=== PATIENT | male | born 1995 | race Caucasian/White ===

== ENCOUNTER 2018-08-05 17:52 | Emergency (ER) | payer SELFPAY ==
--- NOTE | 2018-08-05 18:02 | ED.GENADULT ---
HPI - General Adult <Shantel Diaz PA-C - Last Filed: 08/05/18 21:46> General Chief complaint: Toxicology Problem Stated complaint: scared of overdocing Time Seen by Provider: 08/05/18 17:55 Source: patient Mode of arrival: ambulatory Limitations: no limitations History of Present Illness HPI narrative: This 23-year-old male comes to ED secondary to concern for unknown drug ingestion/intoxication. He states that he does take Percocet sometimes, and an acquaintance offered him 1 earlier that he took. He states friends were later laughing saying it was Fentanyl, and 1/2 hour to 45 minutes after taking it he became nauseated, felt dizzy and sweaty. He states he vomited 4 or 5 times, tried to drink some milk but could not keep that down. He states that he did smoke pot today, denies any other drug ingestion. He denies any alcohol today, did have some last night. He states that his ?head feels nauseated?. He denies chest pain or dyspnea. He states that he did eat earlier today. He states that he felt like it was more difficult to walk earlier due to nausea. He denies vision change. He denies chest pain, dyspnea or abdominal pain. He denies extremity pain or other new complaints on systems review. He states that crush is it, it crutches easily where as this was a different texture ?like little rocks?. Related Data Previous Rx's Medication Instructions Recorded clindamycin HCl [Cleocin HCl] 300 mg PO TID #30 cap 01/28/17 Allergies Allergy/AdvReac Type Severity Reaction Status Date / Time amoxicillin Allergy Unknown Verified 08/05/18 18:05 cefuroxime Allergy Unknown Verified 08/05/18 18:05 Sulfa (Sulfonamide Allergy Unknown Verified 08/05/18 18:05 Antibiotics) Review of Systems <Shantel Diaz PA-C - Last Filed: 08/05/18 21:46> Review of Systems ROS Unobtainable: All systems reviewed & are unremarkable except as noted in HPI and below PFSH <Shantel Diaz PA-C - Last Filed: 08/05/18 21:46> Medical History (Updated 08/05/18 @ 19:51 by Shantel Diaz PA-C) History of attention deficit disorder (Chronic) History of bipolar disorder (Chronic) Surgical History Status post tonsillectomy (Resolved) Social History Smoking Status: Never smoker Social History Smoking Status: Never smoker Exam <Shantel Diaz PA-C - Last Filed: 08/05/18 21:46> Narrative Exam Narrative: GENERAL APPEARANCE: Patient appears somewhat uncomfortable but in NAD HEENT: PERRL, EOMI, normal oropharynx NECK: Supple LUNGS: Clear to auscultation bilaterally. HEART: Rate and rhythm regular without murmur, normal S1 and S2, no S3 or S4. ABDOMEN: Soft, NT, ND, + BS x 4 quadrants NEUROLOGIC: Alert and oriented, normal speech and coordination DERMATOLOGIC: No exanthem, minimal diaphoresis Initial Vital Signs Initial Vital Signs: Vital Signs Pulse Rate 59 L 08/05/18 18:05 Respiratory Rate 20 08/05/18 18:05 Blood Pressure 140/86 08/05/18 18:05 Pulse Oximetry 100 08/05/18 18:05 <Nigel Swain DO - Last Filed: 08/06/18 01:21> Initial Vital Signs Initial Vital Signs: Vital Signs Pulse Rate 59 L 08/05/18 18:05 Respiratory Rate 20 08/05/18 18:05 Blood Pressure 140/86 08/05/18 18:05 Pulse Oximetry 100 08/05/18 18:05 Course <Shantel Diaz PA-C - Last Filed: 08/05/18 21:46> Additional Information: Patient is feeling well at the time of discharge, tolerating oral fluids well and stating that he is hungry, plans to go to [facility]. Reviewed findings of urine drug screen with him, no opiate found but positive for methamphetamine which is likely what he was given. Orders Ordered: ED Orders 08/05/18 18:08 EKG-12 Lead Stat 08/05/18 18:15 Acetaminophen Stat Complete Blood Count AUTO DIFF Stat Comprehensive Metabolic Panel Stat Magnesium Stat Salicylate Stat 08/05/18 19:20 Urine Culture Stat Urine Drug Screen, Rapid Stat Urine Microscopic Stat Discontinued Medications Sodium Chloride (Normal Saline 0.9%) 1,000 mls @ 1,000 mls/hr IV BOLUS ONE Stop: 08/05/18 19:18 Last Infusion: 08/05/18 19:40 Dose: 0 mls/hr Admin: 08/05/18 18:22 Dose: 1,000 mls/hr Ondansetron HCl (Zofran) 4 mg IV NOW ONE Stop: 08/05/18 18:12 Last Admin: 08/05/18 18:22 Dose: 4 mg Vital Signs - 8 hr 08/05/18 18:05 08/05/18 19:32 Pulse Rate 59 L 75 Respiratory Rate 20 18 Blood Pressure 140/86 Blood Pressure [Right Arm] 128/77 Pulse Oximetry 100 98 <Nigel Swain DO - Last Filed: 08/06/18 01:21> Orders Ordered: ED Orders 08/05/18 18:08 EKG-12 Lead Stat 08/05/18 18:15 Acetaminophen Stat Complete Blood Count AUTO DIFF Stat Comprehensive Metabolic Panel Stat Magnesium Stat Salicylate Stat 08/05/18 19:20 Urine Culture Stat Urine Drug Screen, Rapid Stat Urine Microscopic Stat Discontinued Medications Sodium Chloride (Normal Saline 0.9%) 1,000 mls @ 1,000 mls/hr IV BOLUS ONE Stop: 08/05/18 19:18 Last Infusion: 08/05/18 19:40 Dose: 0 mls/hr Admin: 08/05/18 18:22 Dose: 1,000 mls/hr Ondansetron HCl (Zofran) 4 mg IV NOW ONE Stop: 08/05/18 18:12 Last Admin: 08/05/18 18:22 Dose: 4 mg Vital Signs - 8 hr 08/05/18 18:05 08/05/18 19:32 Pulse Rate 59 L 75 Respiratory Rate 20 18 Blood Pressure 140/86 Blood Pressure [Right Arm] 128/77 Pulse Oximetry 100 98 Medical Decision Making <Shantel Diaz PA-C - Last Filed: 08/05/18 21:46> Lab Data Lab results reviewed: Yes I reviewed the patient's lab results. Result diagrams: 08/05/18 18:15 08/05/18 18:15 Lab Results 05/26/19 05/26/19 05/26/19 Range/Units 18:15 18:15 18:15 WBC 12.1 H (4.5-11.0) X10^3/uL RBC 5.27 (4.5-5.9) X10^6/uL Hgb 16.3 (13.5-17.5) g/dL Hct 47.7 (41-53) % MCV 90.4 (80-100) fL MCH 30.9 (26-34) PG MCHC 34.1 (30-36) % RDW 12.6 (11.6-14.8) % Plt Count 306 (150-400) X10^3/uL Neut % (Auto) 57.5 (50-75) % Lymph % (Auto) 25.3 (25-40) % [place] % (Auto) 10.5 (3-14) % Eos % (Auto) 5.4 H (2-4) % Baso % (Auto) 1.3 (0-2) % Neut # (Auto) 6900 (8188-0074) /uL Lymph # (Auto) 3100 (1607-7115) /uL [place] # (Auto) 1300 H (0-900) /uL Eos # (Auto) 700 H (0-450) /uL Baso # (Auto) 200 H (0-100) /uL Sodium 141 (137-145) mmol/L Potassium 3.5 (3.4-5.1) mmol/L Chloride 99 (98-107) mmol/L Carbon Dioxide 29 (22-32) mmol/L BUN 14 (9-20) mg/dL Creatinine 0.80 (0.66-1.25) mg/dL Estimated GFR > 60.0 (>60) mL/min BUN/Creatinine Ratio 17.5 (6-22) Glucose 125 H (70-100) mg/dL Calcium 9.7 (8.4-10.2) mg/dL Magnesium 2.0 (1.6-2.3) mg/dL Total Bilirubin 0.9 (0.2-1.3) mg/dL AST 24 (17-59) IU/L ALT 20 L (21-72) IU/L Alkaline Phosphatase 70 (38-126) U/L Total Protein 7.9 (6.3-8.2) g/dL Albumin 5.0 (3.5-5.0) g/dL Globulin 2.9 (1.7-4.1) g/dL Albumin/Globulin Ratio 1.7 (1.0-2.8) Urine RBC (0-5/HPF) Urine WBC (0-5/HPF) Ur Squamous Epith Cells (0-5/HPF) Amorphous Sediment Urine Bacteria (None) Urine Mucus (Negative) Ur Culture Indicated? Salicylates (<20) mg/dL Urine Opiates Screen (Negative) Ur Oxycodone Screen (Negative) Urine Methadone Screen (Negative) Acetaminophen < 10 L (10-30) ug/mL Ur Barbiturates Screen (Negative) U Tricyclic Antidepress (Negative) Ur Phencyclidine Scrn (Negative) Ur Amphetamines Screen (Negative) U Methamphetamines Scrn (Negative) Ur MDMA Scrn (Ecstasy) (Negative) U Benzodiazepines Scrn (Negative) Urine Cocaine Screen (Negative) U Marijuana (THC) Screen (Negative) 08/05/18 08/05/18 08/05/18 Range/Units 18:15 19:20 19:20 WBC (4.5-11.0) X10^3/uL RBC (4.5-5.9) X10^6/uL Hgb (13.5-17.5) g/dL Hct (41-53) % MCV (80-100) fL MCH (26-34) PG MCHC (30-36) % RDW (11.6-14.8) % Plt Count (150-400) X10^3/uL Neut % (Auto) (50-75) % Lymph % (Auto) (25-40) % [place] % (Auto) (3-14) % Eos % (Auto) (2-4) % Baso % (Auto) (0-2) % Neut # (Auto) (6799-3071) /uL Lymph # (Auto) (9083-0440) /uL [place] # (Auto) (0-900) /uL Eos # (Auto) (0-450) /uL Baso # (Auto) (0-100) /uL Sodium (137-145) mmol/L Potassium (3.4-5.1) mmol/L Chloride (98-107) mmol/L Carbon Dioxide (22-32) mmol/L BUN (9-20) mg/dL Creatinine (0.66-1.25) mg/dL Estimated GFR (>60) mL/min BUN/Creatinine Ratio (6-22) Glucose (70-100) mg/dL Calcium (8.4-10.2) mg/dL Magnesium (1.6-2.3) mg/dL Total Bilirubin (0.2-1.3) mg/dL AST (17-59) IU/L ALT (21-72) IU/L Alkaline Phosphatase (38-126) U/L Total Protein (6.3-8.2) g/dL Albumin (3.5-5.0) g/dL Globulin (1.7-4.1) g/dL Albumin/Globulin Ratio (1.0-2.8) Urine RBC None seen (0-5/HPF) Urine WBC 10-30/hpf H (0-5/HPF) Ur Squamous Epith Cells 0-1 /hpf (0-5/HPF) Amorphous Sediment 1+ Urine Bacteria Few (2-10) H (None) Urine Mucus 2+ H (Negative) Ur Culture Indicated? Specimen cultured Salicylates < 1.0 (<20) mg/dL Urine Opiates Screen Negative (Negative) Ur Oxycodone Screen Negative (Negative) Urine Methadone Screen Negative (Negative) Acetaminophen (10-30) ug/mL Ur Barbiturates Screen Negative (Negative) U Tricyclic Antidepress Negative (Negative) Ur Phencyclidine Scrn Negative (Negative) Ur Amphetamines Screen Positive H (Negative) U Methamphetamines Scrn Positive H (Negative) Ur MDMA Scrn (Ecstasy) Negative (Negative) U Benzodiazepines Scrn Negative (Negative) Urine Cocaine Screen Negative (Negative) U Marijuana (THC) Screen Positive H (Negative) Urine Dip Bedside Urine Glucose Negative Bedside Urine Bilirubin - Negative Bedside Urine Ketone ++ 40 Urine Specific [place] 1.025 Bedside Urine Occult Blood - Negative Bedside Urine pH 6.0 Bedside Urine Protein + 30 Bedside Urine Urobilinogen +/- 1mg Bedside Urine Nitrite - Negative Bedside Urine Leukocytes +/- 15 Esterase Point of care testing: Urine Dip Bedside Urine Glucose Negative Bedside Urine Bilirubin - Negative Bedside Urine Ketone ++ 40 Urine Specific [place] 1.025 Bedside Urine Occult Blood - Negative Bedside Urine pH 6.0 Bedside Urine Protein + 30 Bedside Urine Urobilinogen +/- 1mg Bedside Urine Nitrite - Negative Bedside Urine Leukocytes +/- 15 Esterase ECG Data Attestation: I personally reviewed and interpreted this ECG as follows: (Normal sinus rhythm, rate 61, normal axis, no ectopy) Prior ECG tracings: not available for review <Nigel Swain DO - Last Filed: 08/06/18 01:21> Lab Data Lab Results 08/05/18 08/05/18 08/05/18 Range/Units 18:15 18:15 18:15 WBC 12.1 H (4.5-11.0) X10^3/uL RBC 5.27 (4.5-5.9) X10^6/uL Hgb 16.3 (13.5-17.5) g/dL Hct 47.7 (41-53) % MCV 90.4 (80-100) fL MCH 30.9 (26-34) PG MCHC 34.1 (30-36) % RDW 12.6 (11.6-14.8) % Plt Count 306 (150-400) X10^3/uL Neut % (Auto) 57.5 (50-75) % Lymph % (Auto) 25.3 (25-40) % [place] % (Auto) 10.5 (3-14) % Eos % (Auto) 5.4 H (2-4) % Baso % (Auto) 1.3 (0-2) % Neut # (Auto) 6900 (3238-2749) /uL Lymph # (Auto) 3100 (4253-5047) /uL [place] # (Auto) 1300 H (0-900) /uL Eos # (Auto) 700 H (0-450) /uL Baso # (Auto) 200 H (0-100) /uL Sodium 141 (137-145) mmol/L Potassium 3.5 (3.4-5.1) mmol/L Chloride 99 (98-107) mmol/L Carbon Dioxide 29 (22-32) mmol/L BUN 14 (9-20) mg/dL Creatinine 0.80 (0.66-1.25) mg/dL Estimated GFR > 60.0 (>60) mL/min BUN/Creatinine Ratio 17.5 (6-22) Glucose 125 H (70-100) mg/dL Calcium 9.7 (8.4-10.2) mg/dL Magnesium 2.0 (1.6-2.3) mg/dL Total Bilirubin 0.9 (0.2-1.3) mg/dL AST 24 (17-59) IU/L ALT 20 L (21-72) IU/L Alkaline Phosphatase 70 (38-126) U/L Total Protein 7.9 (6.3-8.2) g/dL Albumin 5.0 (3.5-5.0) g/dL Globulin 2.9 (1.7-4.1) g/dL Albumin/Globulin Ratio 1.7 (1.0-2.8) Urine RBC (0-5/HPF) Urine WBC (0-5/HPF) Ur Squamous Epith Cells (0-5/HPF) Amorphous Sediment Urine Bacteria (None) Urine Mucus (Negative) Ur Culture Indicated? Salicylates (<20) mg/dL Urine Opiates Screen (Negative) Ur Oxycodone Screen (Negative) Urine Methadone Screen (Negative) Acetaminophen < 10 L (10-30) ug/mL Ur Barbiturates Screen (Negative) U Tricyclic Antidepress (Negative) Ur Phencyclidine Scrn (Negative) Ur Amphetamines Screen (Negative) U Methamphetamines Scrn (Negative) Ur MDMA Scrn (Ecstasy) (Negative) U Benzodiazepines Scrn (Negative) Urine Cocaine Screen (Negative) U Marijuana (THC) Screen (Negative) 08/05/18 08/05/18 08/05/18 Range/Units 18:15 19:20 19:20 WBC (4.5-11.0) X10^3/uL RBC (4.5-5.9) X10^6/uL Hgb (13.5-17.5) g/dL Hct (41-53) % MCV (80-100) fL MCH (26-34) PG MCHC (30-36) % RDW (11.6-14.8) % Plt Count (150-400) X10^3/uL Neut % (Auto) (50-75) % Lymph % (Auto) (25-40) % [place] % (Auto) (3-14) % Eos % (Auto) (2-4) % Baso % (Auto) (0-2) % Neut # (Auto) (6469-8201) /uL Lymph # (Auto) (3598-3394) /uL [place] # (Auto) (0-900) /uL Eos # (Auto) (0-450) /uL Baso # (Auto) (0-100) /uL Sodium (137-145) mmol/L Potassium (3.4-5.1) mmol/L Chloride (98-107) mmol/L Carbon Dioxide (22-32) mmol/L BUN (9-20) mg/dL Creatinine (0.66-1.25) mg/dL Estimated GFR (>60) mL/min BUN/Creatinine Ratio (6-22) Glucose (70-100) mg/dL Calcium (8.4-10.2) mg/dL Magnesium (1.6-2.3) mg/dL Total Bilirubin (0.2-1.3) mg/dL AST (17-59) IU/L ALT (21-72) IU/L Alkaline Phosphatase (38-126) U/L Total Protein (6.3-8.2) g/dL Albumin (3.5-5.0) g/dL Globulin (1.7-4.1) g/dL Albumin/Globulin Ratio (1.0-2.8) Urine RBC None seen (0-5/HPF) Urine WBC 10-30/hpf H (0-5/HPF) Ur Squamous Epith Cells 0-1 /hpf (0-5/HPF) Amorphous Sediment 1+ Urine Bacteria Few (2-10) H (None) Urine Mucus 2+ H (Negative) Ur Culture Indicated? Specimen cultured Salicylates < 1.0 (<20) mg/dL Urine Opiates Screen Negative (Negative) Ur Oxycodone Screen Negative (Negative) Urine Methadone Screen Negative (Negative) Acetaminophen (10-30) ug/mL Ur Barbiturates Screen Negative (Negative) U Tricyclic Antidepress Negative (Negative) Ur Phencyclidine Scrn Negative (Negative) Ur Amphetamines Screen Positive H (Negative) U Methamphetamines Scrn Positive H (Negative) Ur MDMA Scrn (Ecstasy) Negative (Negative) U Benzodiazepines Scrn Negative (Negative) Urine Cocaine Screen Negative (Negative) U Marijuana (THC) Screen Positive H (Negative) Urine Dip Bedside Urine Glucose Negative Bedside Urine Bilirubin - Negative Bedside Urine Ketone ++ 40 Urine Specific [place] 1.025 Bedside Urine Occult Blood - Negative Bedside Urine pH 6.0 Bedside Urine Protein + 30 Bedside Urine Urobilinogen +/- 1mg Bedside Urine Nitrite - Negative Bedside Urine Leukocytes +/- 15 Esterase Point of care testing: Urine Dip Bedside Urine Glucose Negative Bedside Urine Bilirubin - Negative Bedside Urine Ketone ++ 40 Urine Specific [place] 1.025 Bedside Urine Occult Blood - Negative Bedside Urine pH 6.0 Bedside Urine Protein + 30 Bedside Urine Urobilinogen +/- 1mg Bedside Urine Nitrite - Negative Bedside Urine Leukocytes +/- 15 Esterase Discharge Plan Departure Patient Disposition: Home Clinical Impression: Dehydration Ingested substance, unknown drug Qualifiers: Encounter type: initial encounter Injury intent: accidental or unintentional Qualified Code(s): T50.901A - Poisoning by unspecified drugs, medicaments and biological substances, accidental (unintentional), initial encounter Vomiting Qualifiers: Vomiting type: unspecified Vomiting Intractability: non-intractable Nausea presence: with nausea Qualified Code(s): R11.2 - Nausea with vomiting, unspecified Discharge Date/Time: 08/05/18 20:01 Interventions: ED Discharge Assessment Last Done: 08/05/18 20:00 Instructions: Nausea and Vomiting-Adult, Methamphetamine Activity Restrictions/Additional Instructions: As we talked about, you should return if you have any acutely worsening symptoms. Your drug screen today did not show opioids such as Percocet in that you thought you took. It did show methamphetamine/amphetamine, which may explain the symptoms that you had earlier. Since you are feeling substantially better and able to keep down fluids and are feeling hungry, you can monitor at home. Please follow-up with your PCP in a few days for recheck. As we discussed, your urine did have a little bit of bacteria in it today, however since you have not had any symptoms of urinary infection, we decided together not to treat this today. Please review the culture with your PCP when you follow-up next week Prescriptions: No Action clindamycin HCl [Cleocin HCl] 300 MG capsule 300 mg PO TID Qty: 30 RF: 0 Referrals: Binh Dempsey MD [Primary Care Provider] - <Nigel Swain DO - Last Filed: 08/06/18 01:21> Cosign ED Attending Jasmine Attestation: I was immediately available in the department for consultation. Documentation has been reviewed. I agree with assessment and plan.
[2018-08-05 18:05] VITALS: BP 140/86; PULSE 59; RESP 20; O2SAT 100; BMI 24.3
[2018-08-05] MEDS: SODIUM CHLORIDE 0.9% 1,000 ML 1000 ML IV (18:22)
[2018-08-05] MEDS: ONDANSETRON 4 MG/2 ML INJ IV (18:22)
[2018-08-05 18:23] LABS: Add Manual Diff / Slide Review NO; Basophils Absolute Auto 200 /uL (0-100); Basophils Percent Auto 1.3 % (0-2); Eosinophils Absolute Auto 700 /uL (0-450); Eosinophils Percent Auto 5.4 % (2-4); Hematocrit 47.7 % (41-53); Hemoglobin 16.3 g/dL (13.5-17.5); Lymphocytes Absolute Auto 3100 /uL (1100-4500); Lymphocytes Percent Auto 25.3 % (25-40); Mean Corpuscular HGB Conc 34.1 % (30-36); Mean Corpuscular Hemoglobin 30.9 PG (26-34); Mean Corpuscular Volume 90.4 fL (80-100); Monocytes Absolute Auto 1300 /uL (0-900); Monocytes Percent Auto 10.5 % (3-14); Neutrophils Absolute Auto 6900 /uL (1500-7000); Neutrophils Percent Auto 57.5 % (50-75); Platelet Count 306 X10^3/uL (150-400); Red Blood Cell Count 5.27 X10^6/uL (4.5-5.9); Red Cell Distribution Width 12.6 % (11.6-14.8); White Blood Cell Count 12.1 X10^3/uL (4.5-11.0)
[2018-08-05 18:38] LABS: Acetaminophen < 10 ug/mL (10-30); Salicylate < 1.0 mg/dL (<20)
[2018-08-05 18:40] LABS: Alanine Aminotransferase 20 IU/L (21-72); Albumin Globulin Ratio 1.7 (1.0-2.8); Alkaline Phosphatase 70 U/L (38-126); Aspartate Aminotransferase 24 IU/L (17-59); BUN Creatinine Ratio 17.5 (6-22); Bilirubin Total 0.9 mg/dL (0.2-1.3); Blood Urea Nitrogen 14 mg/dL (9-20); Calcium 9.7 mg/dL (8.4-10.2); Carbon Dioxide 29 mmol/L (22-32); Chloride 99 mmol/L (98-107); Estimated Glomerular Filt Rate > 60.0 mL/min (>60); Globulin 2.9 g/dL (1.7-4.1); Glucose 125 mg/dL (70-100); HEMOLYSIS < 15 (0-50); Potassium 3.5 mmol/L (3.4-5.1); Sodium 141 mmol/L (137-145); Total Protein 7.9 g/dL (6.3-8.2)
[2018-08-05 19:29] LABS: RBC Urine None Seen (0-5/HPF)
[2018-08-05 19:32] VITALS: BP 128/77; PULSE 75; RESP 18; O2SAT 98
[2018-08-05 19:35] LABS: Urine Amphetamines Positive (Negative); Urine Barbiturates Negative (Negative); Urine Benzodiazepines Negative (Negative); Urine Cocaine Negative (Negative); Urine MDMA Negative (Negative); Urine Methadone Negative (Negative); Urine Methamphetamines Positive (Negative); Urine Morphine/Opi cutoff 2000 Negative (Negative); Urine Oxycodone Negative (Negative); Urine Phencyclidine Negative (Negative); Urine Tetrahydrocannabinol Positive (Negative); Urine Tricyclic Antidepressant Negative (Negative)
[2018-08-05 19:37] LABS: Squamous Epithelial Cell Urine 0-1 /HPF (0-5/HPF); WBC Urine 10-30/HPF (0-5/HPF)
[2018-08-05 19:38] LABS: Amorphous Sediment Urine 1+; Bacteria Urine Few (2-10); Culture Indicated Urine Specimen Cultured; Mucus Urine 2+ (Negative)
== END 2018-08-05 20:01 | disposition home or self-care (01) ==
PROVIDERS: Emergency Provider Internal Medicine; Family Provider Family Medicine; PCP Family Medicine
DX: E86.0 Dehydration (principal); T50.901A Poisoning by unspecified drugs, medicaments and biological substances, accidental (unintentional), initial encounter; R11.2 Nausea with vomiting, unspecified
CPT/HCPCS: 36591; 80053; 80305; 80329; 81003; 81015; 83735; 85025; 87086; 93005; 96361; 96374; 99283; 99284; G0480; J2405

== ENCOUNTER 2019-11-24 08:49 | Emergency (ER) | payer SELFPAY ==
[2019-11-24 09:08] VITALS: BP 119/64; PULSE 82; RESP 18; TEMP 36.5; O2SAT 100; BMI 24.3
--- NOTE | 2019-11-24 09:21 | ED.BACK ---
HPI - Back Pain/Injury General Chief Complaint: Back Pain/Injury Stated Complaint: Very bad back pain on right side, hurts w/breath Time Seen by Provider: 11/24/19 08:50 Source: patient Mode of arrival: Ambulatory Limitations: no limitations History of Present Illness HPI Narrative: 24-year-old male smoker with noncontributory medical history presents with a chief complaint left flank pain worsening over the past day or 2. He denies any fever chills. He denies any chest pain or shortness of breath. He denies any obvious injury or overuse. He denies N/V/D or abdominal pain. He's had some abnormal sensations when urinating. He denies being sexually active. MD Complaint: back pain Onset (ago): day(s) Duration: constant Similar Symptoms Previously: No Location: left flank Severity: moderate Quality: aching Radiation: none Exacerbating factors: movement and deep breaths Associated symptoms: increased urinary urgency Treatments prior to arrival: NSAIDS Related Data Previous Rx's Medication Instructions Recorded clindamycin HCl [Cleocin HCl] 300 mg PO TID #30 cap 01/28/17 ciprofloxacin HCl 500 mg PO BID #20 tab 11/24/19 ketorolac 10 mg PO TID PRN #10 tab 11/24/19 Allergies Allergy/AdvReac Type Severity Reaction Status Date / Time amoxicillin Allergy Unknown Verified 08/05/18 18:05 cefuroxime Allergy Unknown Verified 08/05/18 18:05 Sulfa (Sulfonamide Allergy Unknown Verified 08/05/18 18:05 Antibiotics) Review of Systems Constitutional Constitutional: Denies chills, Denies fatigue, Denies fever(s), Denies frequent falls, Denies lethargy and Denies weakness Eyes Eyes: Denies change in vision, Denies eye discharge, Denies irritation and Denies loss of vision ENT Ears, Nose, Mouth, and Throat: Denies change in voice, Denies dizziness, Denies neck pain, Denies sore throat and Denies throat swelling Cardiovascular Cardiovascular: Denies chest pain, Denies irregular heart rhythm, Denies lightheadedness, Denies palpitations, Denies dyspnea, Denies dyspnea on exertion and Denies orthopnea Respiratory Respiratory: Denies cough, Denies dyspnea, Denies dyspnea on exertion and Denies wheezing Gastrointestinal Gastrointestinal: Denies abdominal pain, Denies change in bowel habits, Denies diarrhea, Denies nausea and Denies vomiting Genitourinary Genitourinary: Reports dysuria Genitourinary: Reports dysuria Musculoskeletal Musculoskeletal: Reports back pain, Denies neck pain and Denies numbness Integumentary/Breasts Skin/Breast: Denies pruritus, Denies erythema, Denies rash and Denies wounds Neurologic Neurologic: Denies behavioral changes, Denies confusion, Denies dizziness, Denies frequent falls, Denies loss of vision, Denies numbness and Denies weakness Psychiatric Psychiatric: Denies anxiety, Denies behavioral changes, Denies confusion, Denies depression, Denies homicidal ideation and Denies suicidal ideation Endocrine Endocrine: Denies fatigue, Denies flushing and Denies palpitations Hematologic/Lymphatic Hematologic/Lymphatic: Denies easy bruising Allergic/Immunologic Allergic/Immunologic: Denies urticaria, Denies throat swelling and Denies wheezing Patient History Medical History History of attention deficit disorder (Chronic) History of bipolar disorder (Chronic) Surgical History Status post tonsillectomy (Resolved) Social History Smoking Status: Current every day smoker Smoking Status: Current every day smoker tobacco type: vaping alcohol intake frequency: 0-2 drinks per day Substance Use Type: marijuana and painkillers Exam Narrative Exam Narrative: GENERAL: [24] year old patient appears stated age. Well-nourished, well-developed patient, in mild distress. HEAD: Atraumatic. Normocephalic. EYES: Pupils equal round and reactive. Extraocular motions intact. No scleral icterus. No injection or drainage. ENT: Nose without bleeding, purulent drainage. Throat without erythema, tonsillar hypertrophy or exudate. Airway patent. NECK: Trachea midline. Non tender CARDIOVASCULAR: Regular rate and rhythm without murmurs, gallops, or rubs. RESPIRATORY: Clear to auscultation. Breath sounds equal bilaterally. No wheezes, rales, or rhonchi. GASTROINTESTINAL: Abdomen soft, non-tender, nondistended. EXTREMITIES: No edema or joint tenderness. BACK: L flank tender to palpation. No midline pain. No saddle anesthesia. 5/5 strength B/L LE. relexes 2+ B/L LE NEURO: AOx3. SKIN: No rash or erythema of visible areas Initial Vital Signs Initial Vital Signs: Vital Signs Temperature 97.7 F 11/24/19 09:08 Pulse Rate 82 11/24/19 09:08 Respiratory Rate 18 11/24/19 09:08 Blood Pressure 119/64 11/24/19 09:08 Pulse Oximetry 100 11/24/19 09:08 Course Orders Ordered: Discontinued Medications Ketorolac Tromethamine (Toradol) 60 mg IM NOW ONE Stop: 11/24/19 09:59 Last Admin: 11/24/19 10:06 Dose: 60 mg Documented by: DENISSE Vital Signs Vital signs: Vital Signs - 8 hr 11/24/19 09:08 11/24/19 10:12 Temperature 97.7 F Pulse Rate 82 77 Respiratory Rate 18 14 Blood Pressure 119/64 121/81 Pulse Oximetry 100 98 MDM - Back Pain/Injury Lab Data Labs: Urine Dip Bedside Urine Glucose Negative Bedside Urine Bilirubin - Negative Bedside Urine Ketone - Negative Urine Specific [place] 1.020 Bedside Urine Occult Blood - Negative Bedside Urine pH 6.0 Bedside Urine Protein - Negative Bedside Urine Urobilinogen - Negative Bedside Urine Nitrite - Negative Bedside Urine Leukocytes +/- 15 Esterase MDM Narrative Medical decision making narrative: given + Leuks on urine, Left CVA tenderness and abnormal urine sensation he is treated for pyelo. Multiple etiologies of back pain considered including; Epidural abscess, cauda equina, mass occupying lesion, and other considered but thought unlikely given presentation and exam findings Discharge Plan Departure Patient Disposition: Home Clinical Impression: Acute pyelonephritis Discharge Date/Time: 11/24/19 10:13 Instructions: Kidney Infection, DI for Urinary Tract Infection (UTI) Activity Restrictions/Additional Instructions: *You have been diagnosed with [left back pain, likely from a urine infection that has moved up to your kidney called pyelonephritis] *What to do: *Take medications as directed: Prescriptions electronically transmitted to [employer] at your request *Follow up with your primary care provider in 2-3 days, call for an appointment. Let them know you were seen in the Emergency Department and that we ask that you be seen in follow up *Return to ER if you should have any new, worsening or concerning symptoms Prescriptions: New ciprofloxacin HCl 500 mg tablet 500 mg PO BID Qty: 20 RF: 0 ketorolac 10 mg tablet 10 mg PO TID PRN (Reason: pain) Qty: 10 RF: 0 No Action clindamycin HCl [Cleocin HCl] 300 MG capsule 300 mg PO TID Qty: 30 RF: 0 Referrals: Binh Dempsey MD [Primary Care Provider] -
[2019-11-24] MEDS: KETOROLAC 60 MG/2 ML VIAL IM (10:06)
[2019-11-24 10:12] VITALS: BP 121/81; PULSE 77; RESP 14; O2SAT 98
== END 2019-11-24 10:13 | disposition home or self-care (01) ==
PROVIDERS: Emergency Provider Emergency Medicine; Family Provider Family Medicine; PCP Family Medicine
DX: N10 Acute pyelonephritis (principal); R30.0 Dysuria
CPT/HCPCS: 81003; 96372; 99283; J1885